=== PATIENT | male | born 1995 ===

== ENCOUNTER 2021-11-28 14:27 | Emergency (ER) | payer OTHER ==
[~2021-11-28] VITALS: Ht 172.7 cm; Wt 79.8 kg
== END 2021-11-28 15:25 | disposition home or self-care (01) ==
LOC: ER 14:27
DX: S20.212A Contusion of left front wall of thorax, initial encounter (principal); V19.9XXA Pedal cyclist (driver) (passenger) injured in unspecified traffic accident, initial encounter; F17.200 Nicotine dependence, unspecified, uncomplicated
CPT/HCPCS: 71046; 99283-25

== ENCOUNTER 2022-01-15 00:22 | Emergency (ER) | payer OTHER ==
[~2022-01-15] VITALS: Ht 172.7 cm; Wt 76.7 kg
[2022-01-15] MEDS ORDERED: ACET500 PO (00:51)
[2022-01-15] MEDS ORDERED: IBUP800 PO (01:22)
== END 2022-01-15 01:41 | disposition home or self-care (01) ==
LOC: ER 00:22
DX: S43.102A Unspecified dislocation of left acromioclavicular joint, initial encounter (principal); V18.4XXA Pedal cycle driver injured in noncollision transport accident in traffic accident, initial encounter; F17.210 Nicotine dependence, cigarettes, uncomplicated
CPT/HCPCS: 73030

== ENCOUNTER 2023-01-29 19:30 | Emergency (ER) | payer OTHER ==
[~2023-01-29] VITALS: Ht 167.6 cm; Wt 80.7 kg
[~2023-01-29 19:30] MED LIST: ACET500 PO; IBUP800 PO
[2023-01-30 00:15] VITALS: BP 129/72
[2023-01-30] MEDS ORDERED: CEPH500 PO (01:52)
== END 2023-01-30 02:03 | disposition home or self-care (01) ==
LOC: ER 19:30
DX: S62.633B Displaced fracture of distal phalanx of left middle finger, initial encounter for open fracture (principal); Z23 Encounter for immunization; W22.8XXA Striking against or struck by other objects, initial encounter; F17.200 Nicotine dependence, unspecified, uncomplicated
CPT/HCPCS: 26755; 73130; 73140; 90471; 90714; 90715; 99283-25; A9270